=== PATIENT | female | born 1965 | race Caucasian/White ===

== ENCOUNTER → 2016-09-15 | Outpatient (CLI) | payer MEDICARE, MEDICAID | END | disposition home or self-care (01) | LOC: WOUND 12:50 | PROVIDERS: ATTEND Podiatrist Foot & Ankle Surgery | DX: L89.614 Pressure ulcer of right heel, stage 4 (principal); M86.171 Other acute osteomyelitis, right ankle and foot; L03.115 Cellulitis of right lower limb; F17.210 Nicotine dependence, cigarettes, uncomplicated | CPT/HCPCS: 11044; 87070; 87077; 87147; 87186; 87205; G0463; WOU0463 ==

== ENCOUNTER → 2016-09-15 | Outpatient (CLI) | payer MEDICARE, MEDICAID ==
[2016-09-15 15:45] LABS: HEMOGLOBIN 13.1 g/dL (11.7-16.4)
== END | disposition home or self-care (01) ==
LOC: CFH 14:40
PROVIDERS: ATTEND Podiatrist Foot & Ankle Surgery
DX: M86.8X7 Other osteomyelitis, ankle and foot (principal)
CPT/HCPCS: 36415; 85025; 85651; 86140

== ENCOUNTER → 2016-09-22 | Outpatient (CLI) | payer MEDICARE, MEDICAID | END | disposition home or self-care (01) | LOC: WOUND 13:30 | PROVIDERS: ATTEND Podiatrist Foot & Ankle Surgery | DX: L89.614 Pressure ulcer of right heel, stage 4 (principal); M86.171 Other acute osteomyelitis, right ankle and foot; F17.210 Nicotine dependence, cigarettes, uncomplicated | CPT/HCPCS: 11044 ==

== ENCOUNTER → 2016-09-27 | Outpatient (CLI) | payer MEDICARE, MEDICAID | END | disposition home or self-care (01) | LOC: WOUND 13:38 | PROVIDERS: ATTEND Internal Medicine Infectious Disease | DX: L89.614 Pressure ulcer of right heel, stage 4 (principal); M86.171 Other acute osteomyelitis, right ankle and foot; G82.22 Paraplegia, incomplete; F17.210 Nicotine dependence, cigarettes, uncomplicated | CPT/HCPCS: G0463; WOU0463 ==

== ENCOUNTER → 2016-10-11 | Outpatient (CLI) | payer MEDICARE, MEDICAID | END | disposition home or self-care (01) | LOC: WOUND 14:00 | PROVIDERS: ATTEND Nurse Practitioner Family | DX: L89.614 Pressure ulcer of right heel, stage 4 (principal); M86.171 Other acute osteomyelitis, right ankle and foot; M19.071 Primary osteoarthritis, right ankle and foot; F17.210 Nicotine dependence, cigarettes, uncomplicated | CPT/HCPCS: 15275; Q4172 ==

== ENCOUNTER → 2016-10-11 | Outpatient (CLI) | payer MEDICARE, MEDICAID ==
[2016-10-12 11:05] LABS: ASPARTATE AMINO TRANSFERASE 15 U/L (15-37); BLOOD UREA NITROGEN 18 mg/dL (7-18)
== END | disposition home or self-care (01) ==
LOC: LAB 03:41
PROVIDERS: ATTEND Internal Medicine Infectious Disease
DX: L97.519 Non-pressure chronic ulcer of other part of right foot with unspecified severity (principal)
CPT/HCPCS: 36415; 80053; 85025; 85651; 86140

== ENCOUNTER → 2016-10-18 | Outpatient (CLI) | payer MEDICARE, MEDICAID | END | disposition home or self-care (01) | LOC: WOUND 14:10 | PROVIDERS: ATTEND Nurse Practitioner Family | DX: L89.614 Pressure ulcer of right heel, stage 4 (principal); M86.171 Other acute osteomyelitis, right ankle and foot; M19.071 Primary osteoarthritis, right ankle and foot; G82.20 Paraplegia, unspecified; F17.210 Nicotine dependence, cigarettes, uncomplicated | CPT/HCPCS: 15275; Q4172 ==

== ENCOUNTER → 2016-10-20 | Outpatient (CLI) | payer MEDICARE, MEDICAID ==
[2016-10-20 15:51] LABS: ASPARTATE AMINO TRANSFERASE 12 U/L (15-37); BLOOD UREA NITROGEN 20 mg/dL (7-18); C-REACTIVE PROTEIN, QUANT 0.08 mg/dL (0.02-0.49)
== END | disposition home or self-care (01) ==
LOC: CFH 12:32
PROVIDERS: ATTEND Nurse Practitioner Family
DX: M41.84 Other forms of scoliosis, thoracic region (principal); M86.171 Other acute osteomyelitis, right ankle and foot
CPT/HCPCS: 36415; 71020; 80053; 85025; 85651; 86140

== ENCOUNTER → 2016-10-25 | Outpatient (CLI) | payer MEDICARE, MEDICAID ==
[2016-10-25 13:17] LABS: ASPARTATE AMINO TRANSFERASE 11 U/L (15-37); BLOOD UREA NITROGEN 15 mg/dL (7-18); C-REACTIVE PROTEIN, QUANT 0.28 mg/dL (0.02-0.49)
== END | disposition home or self-care (01) ==
LOC: LAB 11:31
PROVIDERS: ATTEND Internal Medicine Infectious Disease
DX: L97.513 Non-pressure chronic ulcer of other part of right foot with necrosis of muscle (principal)
CPT/HCPCS: 36415; 80053; 85025; 85651; 86140

== ENCOUNTER → 2016-10-25 | Outpatient (CLI) | payer MEDICARE, MEDICAID | END | disposition home or self-care (01) | LOC: WOUND 13:53 | PROVIDERS: ATTEND Nurse Practitioner Family | DX: L89.614 Pressure ulcer of right heel, stage 4 (principal); M86.171 Other acute osteomyelitis, right ankle and foot; F17.210 Nicotine dependence, cigarettes, uncomplicated | CPT/HCPCS: 15275; Q4172 ==

== ENCOUNTER → 2016-11-01 | Outpatient (CLI) | payer MEDICARE, MEDICAID | END | disposition home or self-care (01) | LOC: WOUND 09:38 | PROVIDERS: ATTEND Internal Medicine | DX: L89.614 Pressure ulcer of right heel, stage 4 (principal); M86.171 Other acute osteomyelitis, right ankle and foot; L03.115 Cellulitis of right lower limb; G82.20 Paraplegia, unspecified; M19.90 Unspecified osteoarthritis, unspecified site; F17.200 Nicotine dependence, unspecified, uncomplicated | CPT/HCPCS: 15275; Q4172 ==

== ENCOUNTER → 2016-11-08 | Outpatient (CLI) | payer MEDICARE, MEDICAID | END | disposition home or self-care (01) | LOC: WOUND 12:59 | PROVIDERS: ATTEND Nurse Practitioner Family | DX: L89.614 Pressure ulcer of right heel, stage 4 (principal); M86.171 Other acute osteomyelitis, right ankle and foot; F17.210 Nicotine dependence, cigarettes, uncomplicated; M19.071 Primary osteoarthritis, right ankle and foot | CPT/HCPCS: 15275; Q4172 ==

== ENCOUNTER → 2016-11-15 | Outpatient (CLI) | payer MEDICARE, MEDICAID | END | disposition home or self-care (01) | LOC: WOUND 13:07 | PROVIDERS: ATTEND Internal Medicine | DX: L89.614 Pressure ulcer of right heel, stage 4 (principal); G82.20 Paraplegia, unspecified; M86.171 Other acute osteomyelitis, right ankle and foot; F17.210 Nicotine dependence, cigarettes, uncomplicated | CPT/HCPCS: 15275; Q4172 ==

== ENCOUNTER → 2016-11-22 | Outpatient (CLI) | payer MEDICARE, MEDICAID ==
[2016-11-23 15:06] LABS: ASPARTATE AMINO TRANSFERASE 11 U/L (15-37); BLOOD UREA NITROGEN 19 mg/dL (7-18)
== END | disposition home or self-care (01) ==
LOC: WOUND 11:00
PROVIDERS: ATTEND Internal Medicine
DX: L89.614 Pressure ulcer of right heel, stage 4 (principal); M86.171 Other acute osteomyelitis, right ankle and foot; F17.210 Nicotine dependence, cigarettes, uncomplicated
CPT/HCPCS: 15275; 36415; 80053; 85025; 85651; 86141; Q4172

== ENCOUNTER → 2016-11-22 | Outpatient (CLI) | payer MEDICARE, MEDICAID | END | disposition home or self-care (01) | LOC: CFH 12:07 | PROVIDERS: ATTEND Internal Medicine Infectious Disease | DX: Z02.9 Encounter for administrative examinations, unspecified (principal) ==

== ENCOUNTER → 2016-11-24 | Outpatient (CLI) | payer MEDICARE, MEDICAID | END | disposition home or self-care (01) | LOC: WOUND 15:25 | PROVIDERS: ATTEND Podiatrist Foot & Ankle Surgery | DX: L89.614 Pressure ulcer of right heel, stage 4 (principal); M86.171 Other acute osteomyelitis, right ankle and foot; F17.210 Nicotine dependence, cigarettes, uncomplicated; G82.20 Paraplegia, unspecified | CPT/HCPCS: G0463; WOU0463 ==

== ENCOUNTER → 2016-11-29 | Outpatient (CLI) | payer MEDICARE, MEDICAID ==
[2016-11-29 15:53] LABS: BLOOD UREA NITROGEN 13 mg/dL (7-18)
[2016-11-29 15:58] LABS: C-REACTIVE PROTEIN, QUANT 0.38 mg/dL (0.02-0.49)
[2016-11-29 16:00] LABS: ASPARTATE AMINO TRANSFERASE 23 U/L (15-37)
== END | disposition home or self-care (01) ==
LOC: LAB 12:50
PROVIDERS: ATTEND Internal Medicine Infectious Disease
DX: L97.513 Non-pressure chronic ulcer of other part of right foot with necrosis of muscle (principal)
CPT/HCPCS: 36415; 80053; 85025; 85651; 86140

== ENCOUNTER → 2016-11-29 | Outpatient (CLI) | payer MEDICARE, MEDICAID | END | disposition home or self-care (01) | LOC: WOUND 09:59 | PROVIDERS: ATTEND Nurse Practitioner Family | DX: L89.614 Pressure ulcer of right heel, stage 4 (principal); G82.20 Paraplegia, unspecified; M86.9 Osteomyelitis, unspecified; F17.210 Nicotine dependence, cigarettes, uncomplicated | CPT/HCPCS: 15275; Q4172 ==

== ENCOUNTER → 2016-12-06 | Outpatient (CLI) | payer MEDICARE, MEDICAID | END | disposition home or self-care (01) | LOC: WOUND 13:50 | PROVIDERS: ATTEND Nurse Practitioner Family | DX: L89.614 Pressure ulcer of right heel, stage 4 (principal); M86.671 Other chronic osteomyelitis, right ankle and foot; I10 Essential (primary) hypertension; G82.20 Paraplegia, unspecified; M19.071 Primary osteoarthritis, right ankle and foot; F17.210 Nicotine dependence, cigarettes, uncomplicated | CPT/HCPCS: 15275; Q4133 ==

== ENCOUNTER → 2016-12-13 | Outpatient (CLI) | payer MEDICARE, MEDICAID | END | disposition home or self-care (01) | LOC: WOUND 14:35 | PROVIDERS: ATTEND Internal Medicine | DX: M86.671 Other chronic osteomyelitis, right ankle and foot (principal); G82.20 Paraplegia, unspecified; F17.210 Nicotine dependence, cigarettes, uncomplicated | CPT/HCPCS: 15275; Q4133 ==

== ENCOUNTER → 2016-12-27 | Outpatient (CLI) | payer MEDICARE, MEDICAID | END | disposition home or self-care (01) | LOC: WOUND 15:47 | PROVIDERS: ATTEND Internal Medicine Infectious Disease | DX: L89.614 Pressure ulcer of right heel, stage 4 (principal); M86.171 Other acute osteomyelitis, right ankle and foot; I10 Essential (primary) hypertension; M86.671 Other chronic osteomyelitis, right ankle and foot; G82.20 Paraplegia, unspecified; M19.071 Primary osteoarthritis, right ankle and foot; F17.210 Nicotine dependence, cigarettes, uncomplicated | CPT/HCPCS: 11042 ==

== ENCOUNTER → 2017-01-03 | Outpatient (CLI) | payer MEDICARE, MEDICAID | END | disposition home or self-care (01) | LOC: WOUND 15:43 | PROVIDERS: ATTEND Nurse Practitioner Family | DX: L89.614 Pressure ulcer of right heel, stage 4 (principal); M86.671 Other chronic osteomyelitis, right ankle and foot; M86.171 Other acute osteomyelitis, right ankle and foot; I10 Essential (primary) hypertension; G82.20 Paraplegia, unspecified; M19.071 Primary osteoarthritis, right ankle and foot; F17.210 Nicotine dependence, cigarettes, uncomplicated | CPT/HCPCS: 15275; Q4133 ==

== ENCOUNTER → 2017-01-10 | Outpatient (CLI) | payer MEDICARE, MEDICAID | END | disposition home or self-care (01) | LOC: WOUND 13:59 | PROVIDERS: ATTEND Nurse Practitioner Family | DX: L89.614 Pressure ulcer of right heel, stage 4 (principal); M86.671 Other chronic osteomyelitis, right ankle and foot; G82.20 Paraplegia, unspecified; I10 Essential (primary) hypertension; F17.210 Nicotine dependence, cigarettes, uncomplicated | CPT/HCPCS: 15275; Q4132 ==

== ENCOUNTER → 2017-01-24 | Outpatient (CLI) | payer MEDICARE, MEDICAID | END | disposition home or self-care (01) | LOC: WOUND 13:10 | PROVIDERS: ATTEND Internal Medicine Infectious Disease | DX: L89.614 Pressure ulcer of right heel, stage 4 (principal); M86.671 Other chronic osteomyelitis, right ankle and foot; G82.20 Paraplegia, unspecified; I10 Essential (primary) hypertension; F17.210 Nicotine dependence, cigarettes, uncomplicated | CPT/HCPCS: 11042 ==

== ENCOUNTER → 2017-01-31 | Outpatient (CLI) | payer MEDICARE, MEDICAID | END | disposition home or self-care (01) | LOC: WOUND 15:03 | PROVIDERS: ATTEND Nurse Practitioner Family | DX: L89.614 Pressure ulcer of right heel, stage 4 (principal); M86.671 Other chronic osteomyelitis, right ankle and foot; I10 Essential (primary) hypertension; F17.210 Nicotine dependence, cigarettes, uncomplicated; G82.20 Paraplegia, unspecified; M19.071 Primary osteoarthritis, right ankle and foot | CPT/HCPCS: 15275; Q4172 ==

== ENCOUNTER → 2017-02-14 | Outpatient (CLI) | payer MEDICARE, MEDICAID | END | disposition home or self-care (01) | LOC: WOUND 13:15 | PROVIDERS: ATTEND Internal Medicine Infectious Disease | DX: L89.614 Pressure ulcer of right heel, stage 4 (principal); I10 Essential (primary) hypertension; M86.671 Other chronic osteomyelitis, right ankle and foot; G82.20 Paraplegia, unspecified; M19.071 Primary osteoarthritis, right ankle and foot; F17.210 Nicotine dependence, cigarettes, uncomplicated | CPT/HCPCS: G0463; WOU0463 ==

== ENCOUNTER 2018-02-03 20:28 | Emergency (ER) | payer MEDICARE, MEDICAID ==
[~2018-02-03] VITALS: Ht 180.3 cm; Wt 67.3 kg
[2018-02-03] MEDS ORDERED: SODIUM CHLORIDE FLUSH 10ML SYR IVF ONE (21:00)
[2018-02-03] MEDS ORDERED: SODIUM CHLORIDE 0.9% 1,000ML IVBOLUS ONE (21:00)
[2018-02-03 21:27] LABS: BASOPHILS # (AUTO) 0.04 x10^3/uL (0-0.1); BASOPHILS % (AUTO) 0 % (0-1); EOSINOPHILS # (AUTO) 0.54 x10^3/uL (0-0.4); EOSINOPHILS % (AUTO) 5 % (1-7); LYMPHOCYTES # (AUTO) 1.64 x10^3/uL (1-3.4); LYMPHOCYTES % (AUTO) 14 % (22-44); MD NO; MEAN CORPUSCULAR HEMOGLOBIN 29.3 pg (27.0-34.8); MEAN CORPUSCULAR HGB CONC 33.4 g/dL (32.4-35.8); MEAN CORPUSCULAR VOLUME 87.8 fL (80-100); MEAN PLATELET VOLUME 8.6 fL (7.4-10.4); MONOCYTES # (AUTO) 0.93 x10^3/uL (0.2-0.8); MONOCYTES % (AUTO) 8 % (2-9); NEUTROPHILS # (AUTO) 8.66 x10^3/uL (1.8-6.8); NEUTROPHILS % (AUTO) 73 % (42-75); PLATELET COUNT 250 x10^3/uL (130-400); RED BLOOD COUNT 4.41 x10^6/uL (3.82-5.3); RED CELL DISTRIBUTION WIDTH 14.5 % (9.6-15.2)
[2018-02-03 21:31] LABS: ALANINE AMINOTRANSFERASE 11 U/L (12-78); ANION GAP 5 mmol/L (5-15); CALCIUM 8.2 mg/dL (8.5-10.1); CHLORIDE 112 mmol/L (98-107); CREATININE 0.63 mg/dL (0.55-1.02)
[2018-02-03 21:34] LABS: ALKALINE PHOSPHATASE 96 U/L (45-117); BILIRUBIN,TOTAL 0.4 mg/dL (0.2-1.0); TOTAL PROTEIN 7.2 g/dL (6.4-8.2)
[2018-02-03] MEDS ORDERED: CEFTRIAXONE 1,000 MG IM ONE (23:00)
[2018-02-03 23:04] VITALS: BP 99/58
[2018-02-03] MEDS ORDERED: CEFTRIAXONE 1,000 MG ONE (23:10)
== END 2018-02-03 23:38 | disposition home or self-care (01) ==
LOC: ED 21:01
DX: L03.116 Cellulitis of left lower limb (principal)
CPT/HCPCS: 36415; 73590; 80053; 83605; 84145; 85025; 87040; 93971; 96372; 99285; J0696

== ENCOUNTER 2018-10-12 16:39 | Emergency (ER) | payer MEDICAID, MEDICARE ==
[~2018-10-12] VITALS: Ht 180.3 cm; Wt 68.4 kg
[2018-10-12] MEDS ORDERED: LIDOCAINE-MPF 1%, 5ML ONE ×2 (16:58→19:47)
[2018-10-12] MEDS ORDERED: LIDOCAINE 1%-EPI 1:100K, 20ML SQ ONE (17:00)
[2018-10-12 18:16] LABS: BASOPHILS # (AUTO) 0.03 x10^3/uL (0-0.1); BASOPHILS % (AUTO) 0 % (0-1); EOSINOPHILS # (AUTO) 0.52 x10^3/uL (0-0.4); EOSINOPHILS % (AUTO) 6 % (1-7); HCT (SEDRATE) 42.3 % (34.6-47.8); LYMPHOCYTES # (AUTO) 1.41 x10^3/uL (1-3.4); LYMPHOCYTES % (AUTO) 16 % (22-44); MD NO; MEAN CORPUSCULAR HEMOGLOBIN 29.6 pg (27.0-34.8); MEAN CORPUSCULAR HGB CONC 32.8 g/dL (32.4-35.8); MEAN CORPUSCULAR VOLUME 90.1 fL (80-100); MEAN PLATELET VOLUME 9.2 fL (7.4-10.4); MONOCYTES # (AUTO) 0.59 x10^3/uL (0.2-0.8); MONOCYTES % (AUTO) 7 % (2-9); NEUTROPHILS # (AUTO) 6.25 x10^3/uL (1.8-6.8); NEUTROPHILS % (AUTO) 71 % (42-75); PLATELET COUNT 240 x10^3/uL (130-400); RED BLOOD COUNT 4.77 x10^6/uL (3.82-5.3); RED CELL DISTRIBUTION WIDTH 15.1 % (9.6-15.2)
[2018-10-12 18:27] LABS: ANION GAP 4 mmol/L (5-15); C-REACTIVE PROTEIN, QUANT 0.21 mg/dL (0.02-0.49); CALCIUM 8.7 mg/dL (8.5-10.1); CHLORIDE 114 mmol/L (98-107); CREATININE 0.94 mg/dL (0.55-1.02)
[2018-10-12 19:02] VITALS: BP 117/63
--- NOTE | 2018-10-12 19:37 | NUR ---
DR COLES HAS SPOKEN WITH PLASTICS REGARDING THIS PT, PLAN IS TO DRAIN, PO ANTIBIOTICS, AND F/U WITH PLASTICS ON MONDAY
[2018-10-12] MEDS ORDERED: SODIUM CHLORIDE 0.9% 1,000 ML IV ONE (19:38)
[2018-10-12] MEDS ORDERED: ONDANSETRON 2MG/ML, 2ML ONE (19:46)
[2018-10-12] MEDS ORDERED: MORPHINE SULFATE 4 MG/ML, 1ML ONE (19:47)
--- NOTE | 2018-10-12 19:59 | NUR ---
IV START MEDS GIVEN, 5 RIGHTS VERIFIED.
[2018-10-12] MEDS ORDERED: ONDANSETRON ODT 4 MG PO ONE (20:00)
[2018-10-12] MEDS ORDERED: MORPHINE SULFATE 4 MG/ML, 1ML IVPush ONE (20:00)
[2018-10-12] MEDS ORDERED: ONDANSETRON 2MG/ML, 2ML IVPush ONE (20:00)
[2018-10-12] MEDS ORDERED: AMPICILLIN/SULBACTAM 3 GM in SODIUM CHLORIDE 0.9% 100 ML IV ONE (20:00)
[2018-10-12] MEDS ORDERED: OXYcodone/APAP 5/325MG TABLET PO ONE (20:00)
[2018-10-12] MEDS ORDERED: LIDOCAINE-MPF 1%, 5ML INFIL ONE (20:00)
[2018-10-12] MEDS ORDERED: SODIUM CHLORIDE FLUSH 10ML SYR IVF ONE (20:00)
--- NOTE | 2018-10-12 20:18 | NUR ---
ABX GIVEN, SPO2 98% RA, PT AA AND O TIMES 4, AWAIT COMPLETION OF ABNTIBIOTICS FOR DISCHARGE.
== END 2018-10-12 20:46 | disposition home or self-care (01) ==
LOC: ED 17:16
DX: L02.511 Cutaneous abscess of right hand (principal); F17.200 Nicotine dependence, unspecified, uncomplicated
CPT/HCPCS: 10060; 36415; 73140; 80048; 85025; 85651; 86140; 96365; 96375; 99284; J0295; J2405; J7030